=== PATIENT | male | born 1935 | race Caucasian/White ===

== ENCOUNTER → 2017-12-06 | Outpatient (CLI) | payer MEDICARE ==
[~2017-12-06] MED LIST: ASPIRIN325 PO; BENADRYL25 MG PO; COLACE100 MG PO; LEVAQUIN 500 M500 M2 PO; METAMUCIL1 EAC1 PO; MILK OF MA400 MG/5 M PO; MOBIC15 MG PO; NORCO 5-325 TA1 EACH PO; OXYCODONE HCL 55 MG PO; TRAMADOL 50 MG50 MG PO; XARELTO10 MG PO
[2017-12-06 15:28] LABS: HEMATOCRIT 43.4 % (42.0-52.0); HEMOGLOBIN 14.4 gm/dL (14.0-18.0); MCHC 33.1 g/dL (28.0-37.0); MCV 99.6 fL (80.0-100.0); MPV 8.5 fl. (7.2-11.1); RBC 4.35 mil/uL (4.50-6.00); RDW-CV 13.4 % (10.5-14.5); WBC 12.2 thou/uL (4.0-11.0)
[2017-12-06 15:34] LABS: ANION GAP 9 mmol/L (7-16); BUN 21 mg/dL (7-18); CALCIUM 9.1 mg/dL (8.5-10.1); CHLORIDE 105 mmol/L (98-107); CO2 27 mmol/L (21-32); CREATININE 1.1 mg/dL (0.6-1.3); GLUCOSE 94 mg/dL (70-99); POTASSIUM 3.8 mmol/L (3.5-5.1); SODIUM 141 mmol/L (136-145)
[2017-12-06 15:39] LABS: ALBUMIN 3.6 g/dL (3.4-5.0); ALKALINE PHOSPHATASE 73 U/L (46-116); CHOLESTEROL 153 mg/dL (<200); HDL CHOLESTEROL 31 mg/dL (>40); LDL CHOLESTEROL 90 mg/dL (<100); SERUM ASSESSMENT Clear; SGOT 27 U/L (15-37); SGPT 27 U/L (30-65); TC:HDL 4.9 Ratio (Not establshd); TOTAL BILIRUBIN 1.3 mg/dL (<0.1-1.0); TRIGLYCERIDE 162 mg/dL (<150); VLDL 32 mg/dL (<40)
[2017-12-10 14:18] LABS: GLYCOHEMOGLOBIN (HGB A1C) 5.3
== END ==
LOC: M.RAD 15:06 → M.LAB 15:06
PROVIDERS: Family Medicine
DX: I10 Essential (primary) hypertension (principal); R13.10 Dysphagia, unspecified; R09.89 Other specified symptoms and signs involving the circulatory and respiratory systems; R68.89 Other general symptoms and signs; R79.89 Other specified abnormal findings of blood chemistry; Z96.651 Presence of right artificial knee joint